=== PATIENT | male | born 1950 | race African-American/Black ===

== ENCOUNTER 2017-06-18 11:50 | Inpatient (IN) | payer MEDICARE, MEDICAID ==
[~2017-06-18] VITALS: Ht 182.9 cm; Wt 89.0 kg
[2017-06-18] MEDS ORDERED: LORAZEPAM 2MG/ML CPJ IV PRN (12:30)
[2017-06-18] MEDS ORDERED: SODIUM CHLORIDE 0.9% 500 ML IV ONE (12:30)
[2017-06-18 12:46] LABS: BASOPHILS % 0.3 % (0.0-2.0); EOSINOPHILS % 0.1 % (0.0-5.0); HEMATOCRIT. 40.1 % (42.0-52.0); HEMOGLOBIN. 13.8 g/dL (14.0-18.0); LYMPHOCYTES % 7.7 % (20.0-50.0); MEAN CORPUSCULAR HEMOGLOBIN 32.2 pg (28.0-32.0); MEAN CORPUSCULAR VOLUME 93.7 fL (80.0-94.0); MEAN PLATELET VOLUME 7.2 fl (7.4-10.4); MONOCYTES % 10.6 % (2.0-8.0); NEUTROPHILS % 81.3 % (40.0-76.0); PLATELET 102 x1000/uL (130-400); RED BLOOD CELL COUNT 4.28 mill/uL (4.7-6.1); RED CELL DISTRIBUTION WIDTH 13.1 % (11.6-14.6)
[2017-06-18 12:53] LABS: CHLORIDE 93 mEq/L (98-107)
[2017-06-18 13:01] LABS: CARBON DIOXIDE 24 mEq/L (21-32); ETHANOL BLOOD < 10 mg/dL
[2017-06-18] MEDS ORDERED: SODIUM CHLORIDE 0.9% 1,000 ML IV ONE (15:30)
[2017-06-18 15:51] LABS: INR 1.2; PROTHROMBIN TIME 12.7 sec (9.4-11.6)
[2017-06-18] MEDS ORDERED: INSULIN REGULAR (HUMULIN R) UD 100 UNITS/ML SYR IV ONE (18:00)
[2017-06-18] MEDS ORDERED: DEXTROSE 50% WATER 50ML SYRINGE IV ONE (18:00)
[2017-06-18] MEDS ORDERED: CALCIUM CHLORIDE 1GM/10ML SYR IV ONE (18:00)
[2017-06-18] MEDS ORDERED: INSULIN REGULAR (HUMULIN R) 300UNITS/3ML IV NR (18:15)
[2017-06-18 20:30] VITALS: BP 115/73
[2017-06-18] MEDS ORDERED: ONDANSETRON HCL 4MG/2ML VIAL IV PRN (20:45)
[2017-06-18] MEDS ORDERED: LORAZEPAM 0.5MG TABLET PO PRN (20:45)
[2017-06-18] MEDS ORDERED: IPRATROPIUM/ALBUTEROL 0.5-3(2.5)MG/3ML NEB INH PRN (20:45)
[2017-06-18] MEDS ORDERED: CLONIDINE 0.1MG TABLET PO PRN (20:45)
[2017-06-18] MEDS ORDERED: BENZ1TAB7 PO (21:12)
[2017-06-18] MEDS ORDERED: RISP2TAB22 PO (21:12)
[2017-06-18] MEDS ORDERED: PHEN100C4 PO (21:12)
[2017-06-18] MEDS ORDERED: SODIUM CHLORIDE 0.9% 1,000 ML IV SCH (21:30)
[2017-06-18] MEDS ORDERED: DEXTROSE 50% WATER 50ML SYRINGE IV PRN (21:45)
[2017-06-18] MEDS ORDERED: PHENYTOIN SODIUM 500 MG in SODIUM CHLORIDE 0.9% 50 ML IV NR (22:00)
[2017-06-18] MEDS: ACETAMINOPHEN 325MG TABLET PO PRN (22:09)
[2017-06-18] MEDS: INSULIN LISPRO 100 UNITS/ML SUBCUT SCH (23:46)
[2017-06-18] MEDS: BLOOD SUGAR DIAGNOSTIC STRIP TEST SCH (23:47)
[2017-06-19] VITALS: BP 103/58
[2017-06-19 04:00] VITALS: BP 103/57
[2017-06-19 06:05] LABS: HEMATOCRIT. 36.1 % (42.0-52.0); HEMOGLOBIN. 12.4 g/dL (14.0-18.0); MEAN CORPUSCULAR VOLUME 93.2 fL (80.0-94.0); MEAN PLATELET VOLUME 7.7 fl (7.4-10.4); PLATELET 88 x1000/uL (130-400); RED BLOOD CELL COUNT 3.88 mill/uL (4.7-6.1); RED CELL DISTRIBUTION WIDTH 12.9 % (11.6-14.6)
[2017-06-19 06:46] LABS: CHLORIDE 101 mEq/L (98-107)
[2017-06-19 06:51] LABS: CARBON DIOXIDE 25 mEq/L (21-32)
[2017-06-19 08:00] VITALS: BP 109/68
[2017-06-19] MEDS: BLOOD SUGAR DIAGNOSTIC STRIP TEST SCH ×4 (08:31→20:53)
[2017-06-19] MEDS: INSULIN LISPRO 100 UNITS/ML SUBCUT SCH ×4 (08:38→20:51)
[2017-06-19] MEDS: SODIUM CHLORIDE 0.45% 1,000 ML IV SCH ×2 (09:30→18:06)
[2017-06-19 12:18] LABS: BG BASE EXCESS 3.4 mmol/L (-2.0-2.0); BG CARBOXYHEMOGLOBIN 0.9 % (0.5-1.5); BG DEOXYHEMOGLOBIN 3.8 % (0.0-5.0); BG FRACTION INSPIRED OXYGEN 21; BG METHEMOGLOBIN 0.1 % (0.0-1.5); BG OXYGEN SATURATION 96.2 % (92.0-98.5); BG OXYHEMOGLOBIN 95.2 % (94.0-97.0); BG PCO2 42.8 mmHg (35.0-45.0); BG PH 7.434 (7.350-7.450); BG PO2 81.6 mmHg (75.0-100.0); BG SAMPLE SITE RIGHT BRACHIAL; BG TOTAL HEMOGLOBIN 13.3 g/dL (12.0-18.0); BG VENT MODE ROOM AIR
[2017-06-19] MEDS: CEFTRIAXONE 1 G PREMIX 50 ML IV SCH (12:18)
[2017-06-19 12:37] VITALS: BP 102/71
[2017-06-19] MEDS ORDERED: LORAZEPAM 0.5MG TABLET PO PRN (12:45)
[2017-06-19] MEDS ORDERED: ENOXAPARIN 80MG/0.8ML SYR SUBCUT SCH (13:00)
[2017-06-19] MEDS: PHENYTOIN SODIUM EXTENDED 100MG CAPSULE PO SCH ×2 (13:43→16:32)
[2017-06-19] MEDS ORDERED: HYDROCHLOROTHIAZIDE 12.5MG CAPSULE PO SCH (13:45)
[2017-06-19 16:00] VITALS: BP 110/74
[2017-06-19] MEDS: BENZTROPINE MESYLATE 1MG TABLET PO SCH (16:33)
[2017-06-19] MEDS ORDERED: PHENYTOIN SODIUM EXTENDED 100MG CAPSULE PO SCH (17:00)
[2017-06-19 17:04] LABS: CLARITY URINE CLEAR (CLEAR); COLOR URINE YELLOW (YELLOW); GLUCOSE URINE 3+ (NEGATIVE); KETONES URINE NEGATIVE (NEGATIVE); LEUKOCYTE ESTERASE URINE NEGATIVE (NEGATIVE); NITRITE URINE NEGATIVE (NEGATIVE); OCCULT BLOOD URINE NEGATIVE (NEGATIVE); PROTEIN URINE TRACE (NEGATIVE); UROBILINOGEN URINE 0.2 E.U./dL (0.2-1.0)
[2017-06-19 20:00] VITALS: BP 115/76
[2017-06-19] MEDS: RISPERIDONE 1MG TABLET PO SCH (20:51)
[2017-06-19] MEDS: ACETAMINOPHEN 325MG TABLET PO PRN (20:52)
[2017-06-19 22:31] LABS: PLATELET ESTIMATE DECREASED
[2017-06-20] VITALS (7 sets, daily range): BP systolic 103–133; BP diastolic 63–82
[2017-06-20] MEDS: SODIUM CHLORIDE 0.45% 1,000 ML IV SCH ×3 (01:30→17:15)
[2017-06-20] MEDS: ACETAMINOPHEN 325MG TABLET PO PRN ×2 (05:27→19:15)
[2017-06-20 06:48] LABS: BASOPHILS % 0.2 % (0.0-2.0); EOSINOPHILS % 0.3 % (0.0-5.0); LYMPHOCYTES % 15.9 % (20.0-50.0); MEAN CORPUSCULAR HEMOGLOBIN 32.1 pg (28.0-32.0); MEAN CORPUSCULAR VOLUME 93.6 fL (80.0-94.0); MEAN PLATELET VOLUME 8.1 fl (7.4-10.4); MONOCYTES % 14.8 % (2.0-8.0); NEUTROPHILS % 68.8 % (40.0-76.0); PLATELET 82 x1000/uL (130-400); RED BLOOD CELL COUNT 3.74 mill/uL (4.7-6.1); RED CELL DISTRIBUTION WIDTH 13.2 % (11.6-14.6)
[2017-06-20] MEDS: BLOOD SUGAR DIAGNOSTIC STRIP TEST SCH ×4 (07:53→21:15)
[2017-06-20 08:20] LABS: CARBON DIOXIDE 27 mEq/L (21-32); CHLORIDE 99 mEq/L (98-107)
[2017-06-20] MEDS: INSULIN LISPRO 100 UNITS/ML SUBCUT SCH ×4 (08:42→21:16)
[2017-06-20] MEDS: PHENYTOIN SODIUM EXTENDED 100MG CAPSULE PO SCH ×3 (08:43→17:19)
[2017-06-20] MEDS: BENZTROPINE MESYLATE 1MG TABLET PO SCH ×2 (08:43→17:19)
[2017-06-20] MEDS: CEFTRIAXONE 1 G PREMIX 50 ML IV SCH (08:43)
[2017-06-20] MEDS: RISPERIDONE 1MG TABLET PO SCH ×2 (08:43→21:15)
[2017-06-20] MEDS ORDERED: ENOXAPARIN 40MG/0.4ML SYR SUBCUT SCH (09:00)
[2017-06-20] MEDS: APIXABAN 5 MG TABLET PO SCH (17:19)
[2017-06-21] VITALS: BP 126/77
[2017-06-21] MEDS: SODIUM CHLORIDE 0.45% 1,000 ML IV SCH ×2 (00:36→08:38)
[2017-06-21 04:00] VITALS: BP 130/84
[2017-06-21] MEDS: APIXABAN 5 MG TABLET PO SCH (05:28)
[2017-06-21 06:59] LABS: HEMATOCRIT. 34.6 % (42.0-52.0); HEMOGLOBIN. 11.9 g/dL (14.0-18.0); MEAN CORPUSCULAR HEMOGLOBIN 32.1 pg (28.0-32.0); MEAN CORPUSCULAR VOLUME 93.1 fL (80.0-94.0); MEAN PLATELET VOLUME 7.7 fl (7.4-10.4); PLATELET 108 x1000/uL (130-400); RED BLOOD CELL COUNT 3.71 mill/uL (4.7-6.1); RED CELL DISTRIBUTION WIDTH 13.2 % (11.6-14.6)
[2017-06-21 07:24] LABS: CARBON DIOXIDE 27 mEq/L (21-32); CHLORIDE 100 mEq/L (98-107)
[2017-06-21] MEDS: BLOOD SUGAR DIAGNOSTIC STRIP TEST SCH ×2 (07:40→11:41)
[2017-06-21 08:00] VITALS: BP 127/78
[2017-06-21] MEDS: INSULIN LISPRO 100 UNITS/ML SUBCUT SCH ×2 (08:36→12:24)
[2017-06-21] MEDS: BENZTROPINE MESYLATE 1MG TABLET PO SCH (08:37)
[2017-06-21] MEDS: RISPERIDONE 1MG TABLET PO SCH (08:37)
[2017-06-21] MEDS: PHENYTOIN SODIUM EXTENDED 100MG CAPSULE PO SCH ×2 (08:37→12:23)
[2017-06-21] MEDS: CEFTRIAXONE 1 G PREMIX 50 ML IV SCH (08:37)
[2017-06-21] MEDS ORDERED: APIX5TAB PO (09:35)
[2017-06-21] MEDS ORDERED: PHEN100C4 PO (09:35)
[2017-06-21 09:55] LABS: PLATELET ESTIMATE DECREASED
[2017-06-21 10:18] VITALS: BP 121/79
[2017-06-21] MEDS: ACETAMINOPHEN 325MG TABLET PO PRN (11:26)
[2017-06-21 12:00] VITALS: BP 127/78
== END 2017-06-21 13:45 | disposition home or self-care (01) | DRG 207 ==
LOC: ER 11:50 → 7WST 15:59 → ENRESERV 18:17
PROVIDERS: ADMIT Internal Medicine Geriatric Medicine; ATTEND Internal Medicine Geriatric Medicine
DX: I95.9 Hypotension, unspecified (principal); N17.0 Acute kidney failure with tubular necrosis; R65.11 Systemic inflammatory response syndrome (SIRS) of non-infectious origin with acute organ dysfunction; E87.1 Hypo-osmolality and hyponatremia; D64.9 Anemia, unspecified; E11.9 Type 2 diabetes mellitus without complications; I10 Essential (primary) hypertension; E66.9 Obesity, unspecified; E87.5 Hyperkalemia; G40.909 Epilepsy, unspecified, not intractable, without status epilepticus; D72.829 Elevated white blood cell count, unspecified; G90.8 Other disorders of autonomic nervous system; F20.0 Paranoid schizophrenia; Z68.26 Body mass index [BMI] 26.0-26.9, adult; Z79.01 Long term (current) use of anticoagulants; Z79.899 Other long term (current) drug therapy; Z86.711 Personal history of pulmonary embolism
CPT/HCPCS: 36415; 36600; 71010; 80048; 80053; 80185; 81001; 82375; 82805; 82962; 85025; 85610; 86850; 86900; 87040; 87086; 93970; 96361; 96374; 97162; 99285; G0482; J0696; J1165; J1815; J3490; J7030; J7040